=== PATIENT | female | born 1945 | race Caucasian/White ===

== ENCOUNTER 2017-03-30 13:09 | Observation (INO) | payer OTHER ==
[~2017-03-30] VITALS: Ht 167.6 cm; Wt 70.3 kg
--- NOTE | 2017-03-30 13:13 | NUR ---
Patient BIBA to ER bed 4 at this time.
--- NOTE | 2017-03-30 13:15 | NUR ---
71/F SAUL FROM [facility] [place] FOR 6/10 HEADACHE AND CHEST PAIN. PT AWAKE AND ALERT. PER EMS COMPLETE HER DIALYSIS. 22 IV NOTED TO LEFT HAND, IN PLACE BY EMS. NO MEDS GIVEN BY EMS. ER MD MADE AWARE. PT CHANGED IN GOWN AND PLACED ON MONITOR. SAFETY AND COMFORT MEASURES PROVIDED.
[2017-03-30 13:19] VITALS: BP 165/80
--- NOTE | 2017-03-30 13:20 | NUR ---
Patient being evaluated by physician at bedside.
[2017-03-30] MEDS ORDERED: ASPIRIN 81 MG TAB.CHEW PO ONE (13:25)
[2017-03-30] MEDS ORDERED: VENL-151 PO (13:34)
[2017-03-30] MEDS ORDERED: CINA30TA PO (13:34)
[2017-03-30] MEDS ORDERED: NIFE90TE4 PO (13:34)
[2017-03-30] MEDS ORDERED: PANT40EC PO (13:34)
[2017-03-30] MEDS ORDERED: HYDR1TAB70 PO (13:34)
[2017-03-30] MEDS ORDERED: CARV6.25 PO (13:34)
[2017-03-30] MEDS ORDERED: TRAZ-286 PO (13:34)
[2017-03-30] MEDS ORDERED: ASPI81CT89 PO (13:34)
[2017-03-30] MEDS ORDERED: NIFE90TE3 PO (13:34)
[2017-03-30] MEDS ORDERED: MIC5 PO (13:34)
[2017-03-30] MEDS ORDERED: VENL150C1 PO (13:34)
[2017-03-30 13:39] LABS: BASOPHILS # (AUTO) 0.1 K/uL (0.00-0.22); BASOPHILS % (AUTO) 0.7 % (0.0-2.0); EOSINOPHILS # (AUTO) 0.2 K/uL (0-0.4); EOSINOPHILS % (AUTO) 1.8 % (0.0-4.0); HEMATOCRIT 29.6 % (36-48); HEMOGLOBIN 9.3 g/dL (12.0-16.0); LYMPHOCYTES # (AUTO) 1.5 K/uL (2.5-16.5); LYMPHOCYTES % (AUTO) 16.3 % (20.5-51.1); MEAN CORPUSCULAR HEMOGLOBIN 30 pg (27-31); MEAN CORPUSCULAR HGB CONC 32 g/dL (33-37); MEAN CORPUSCULAR VOLUME 94 fL (80-94); MONOCYTES # (AUTO) 0.5 K/uL (0.8-1.0); MONOCYTES % (AUTO) 5.3 % (1.7-9.3); NEUTROPHILS # (AUTO) 6.9 K/uL (1.8-7.7); NEUTROPHILS % (AUTO) 75.9 % (42.2-75.2); PLATELET COUNT (AUTO) 121 K/uL (140-450); RED BLOOD CELL COUNT(AUTO) 3.14 MIL/uL (4.20-5.40); RED CELL DISTRIBUTION WIDTH 19.2 % (11.6-13.7); WHITE BLOOD COUNT (AUTO) 9.3 K/uL (4.8-10.8)
[2017-03-30 14:07] LABS: INR 1.2 (0.8-1.2); PARTIAL THROMBOPLASTIN TIME 34.7 secs (22-35.6); PROTHROMBIN TIME 11.4 secs (10.8-13.4)
--- NOTE | 2017-03-30 14:25 | NUR ---
Note ana in EDM - 03/30/17 at 1451 by THEA 20G IV TO RAC. BLOOD DRAWN AND SENT TO LAB. IV PATENT AND INTACT. PT VALENCIA BRASHER.
--- NOTE | 2017-03-30 14:30 | NUR ---
PT SLEEPING AT THIS TIME. VSS. AWAITING POC.
[2017-03-30 14:39] LABS: CALCIUM 9.4 mg/dL (8.5-10.1); CARBON DIOXIDE 31.6 mmol/L (21-32); CHLORIDE 102 mmol/L (98-107); CREATININE 2.8 mg/dL (0.6-1.3); GLUCOSE 155 mg/dL (74-106); POTASSIUM 3.6 mmol/L (3.5-5.1); SODIUM SERUM 143 mmol/L (136-145); UREA NITROGEN, BLOOD 11 mg/dL (7-18)
[2017-03-30 14:45] LABS: ALANINE AMINOTRANSFERASE 24 U/L (12-78); ALBUMIN 3.4 g/dL (3.4-5.0); ALKALINE PHOSPHATASE 142 U/L (46-116); ASPARTATE AMINOTRANSFERASE 22 U/L (15-37); TOTAL BILIRUBIN 0.8 mg/dL (0.0-1.0); TOTAL PROTEIN, SERUM 7.7 g/dL (6.4-8.2)
[2017-03-30] MEDS ORDERED: NITROGLYCERIN 2% 1 GM PKT TP ONE (14:45)
--- NOTE | 2017-03-30 14:48 | NUR ---
Jay perez in [facility] - 03/30/17 at 1451 by THEA PT SIGNED CONSENT FOR CT OF ABDOMOPELVIS WITH CONTRAST.
[2017-03-30] MEDS ORDERED: ACETAMINOPHEN 325 MG TAB PO PRN (15:30)
[2017-03-30] MEDS ORDERED: HYDROcodone/APAP 5/325 MG 1 TAB TAB PO PRN (15:30)
[2017-03-30] MEDS ORDERED: LORazepam 2 MG/ML VIAL IVP PRN (15:30)
[2017-03-30] MEDS ORDERED: MORPHINE SULFATE 2 MG/ML SYR IVP PRN (15:30)
[2017-03-30] MEDS ORDERED: ONDANSETRON 4 MG/2 ML VIAL IVP PRN (15:30)
--- NOTE | 2017-03-30 15:50 | NUR ---
Patient will be admitted to care of DR. ZEE. Admited to TELE. Will go to room 119-B. Belongings list completed. Report to JOHNNIE SANCHZE.
[2017-03-30 16:14] VITALS: BP 155/77
[2017-03-30] MEDS ORDERED: ALBUTEROL 0.083% 2.5 MG/3 ML NEBU IH SCH (19:00)
[2017-03-30] MEDS ORDERED: IPRATROPIUM 0.02% 0.5 MG/2.5 ML NEBU IH SCH (19:00)
--- NOTE | 2017-03-30 19:31 | NUR ---
PT ON UNIT. NO S/S OF ACUTE DISTRESS. PT DENIES PAIN AT THIS TIME. IV SITE PATENT AND INTACT. DIALYSIS PORT NOTED TO RIGHT UPPER CHEST. ON O2 2L NC. PT ORIENTED TO ROOM. TELE BOX IN PLACE. CALL LIGHT WITHIN REACH. SAFETY MEASURES ENSURED. WILL CONTINUE TO MONITOR.
--- NOTE | 2017-03-30 19:33 | NUR ---
ENDORSED PLAN OF CARE. PT REMAINS IN STABLE CONDITION.
--- NOTE | 2017-03-30 19:35 | NUR ---
RECEIVED REPORT FROM DAY SHIFT NURSE. PT AOX4, ABLE TO VERBALIZE NEEDS. PT RESTING COMFORTABLY IN BED. PT ON 2L O2 NC. PT DENIES CP, SOB OR S/S OF ACUTE DISTRESS. PT C/O PAIN. SEE PAIN ASSESSMENT. WILL MEDICATE WITH APAP PER PT REQUEST. JUNIOR FINANCIAL ANALYST IN PLACE. RIGHT DUC CATH NOTED. RIGHT ARM FISTULA NOTED, RIGHT ARM RESTRICTIONS OBSERVED. IV ACCESS ASYMPTOMATIC, PATENT AND INTACT, SALINE LOCKED. DISCUSSED AND REVIEWED PLAN OF CARE WITH PT, PT VERBALIZES UNDERSTANDING. SAFETY MEASURES ENSURED. CALL LIGHT WITHIN REACH. WILL CONTINUE TO MONITOR.
[2017-03-30 20:00] VITALS: BP 155/77
[2017-03-30] MEDS ORDERED: AZITHROMYCIN 250 MG in DEXTROSE 5% 250 ML IV SCH (21:00)
[2017-03-30] MEDS ORDERED: HYDROCHLOROTHIAZIDE PO SCH (21:00)
[2017-03-30] MEDS ORDERED: VALSARTAN PO SCH (21:00)
[2017-03-30] MEDS ORDERED: [UNRECOGNIZED DRUG - OTHER] PO SCH (21:00)
[2017-03-30] MEDS: CARVEDILOL 6.25 MG TAB PO SCH (21:30)
[2017-03-30] MEDS ORDERED: AZITHROMYCIN 500 MG INJ VIAL IV ONE (21:30)
--- NOTE | 2017-03-30 21:40 | NUR ---
PT SON AT BEDSIDE. ADMINISTERED MEDICATIONS WITH EDUCATION, PT VERBALIZES UNDERSTANDING, PT TOLERATED WELL. IV ZITHROMAX INFUSING WELL. ALL NEEDS MET. SAFETY MEASURES ENSURED. CALL LIGHT WITHIN REACH. WILL CONTINUE TO MONITOR.
[2017-03-30 21:55] LABS: CREATINE KINASE MB 0.7 ng/mL (0-3.6)
[2017-03-31] VITALS: BP 156/80
--- NOTE | 2017-03-31 01:00 | NUR ---
PT SLEEPING IN BED COMFORTABLY. CONDITION STABLE. ALL NEEDS MET. SAFETY MEASURES ENSURED. CALL LIGHT WITHIN REACH. WILL CONTINUE TO MONITOR.
[2017-03-31 04:00] VITALS: BP 162/80
--- NOTE | 2017-03-31 04:00 | NUR ---
PT SLEEPING IN BED COMFORTABLY. CONDITION STABLE. ALL NEEDS MET. SAFETY MEASURES ENSURED. CALL LIGHT WITHIN REACH. WILL CONTINUE TO MONITOR.
[2017-03-31] MEDS ORDERED: PANTOPRAZOLE 40 MG TABEC PO SCH (06:30)
[2017-03-31 06:36] LABS: BASOPHILS # (AUTO) 0.1 K/uL (0.00-0.22); EOSINOPHILS # (AUTO) 0.2 K/uL (0-0.4); EOSINOPHILS % (AUTO) 2.3 % (0.0-4.0); HEMATOCRIT 26.6 % (36-48); HEMOGLOBIN 8.6 g/dL (12.0-16.0); LYMPHOCYTES # (AUTO) 1.8 K/uL (2.5-16.5); LYMPHOCYTES % (AUTO) 22.2 % (20.5-51.1); MEAN CORPUSCULAR HEMOGLOBIN 30 pg (27-31); MEAN CORPUSCULAR HGB CONC 32 g/dL (33-37); MEAN CORPUSCULAR VOLUME 94 fL (80-94); MONOCYTES # (AUTO) 0.6 K/uL (0.8-1.0); MONOCYTES % (AUTO) 7.7 % (1.7-9.3); NEUTROPHILS # (AUTO) 5.3 K/uL (1.8-7.7); NEUTROPHILS % (AUTO) 66.8 % (42.2-75.2); PLATELET COUNT (AUTO) 115 K/uL (140-450); RED BLOOD CELL COUNT(AUTO) 2.82 MIL/uL (4.20-5.40); RED CELL DISTRIBUTION WIDTH 18.8 % (11.6-13.7)
[2017-03-31 06:58] LABS: ALANINE AMINOTRANSFERASE 20 U/L (12-78); ALBUMIN 2.9 g/dL (3.4-5.0); ALKALINE PHOSPHATASE 129 U/L (46-116); ASPARTATE AMINOTRANSFERASE 15 U/L (15-37); CALCIUM 8.7 mg/dL (8.5-10.1); CARBON DIOXIDE 31.4 mmol/L (21-32); CHLORIDE 101 mmol/L (98-107); GLUCOSE 216 mg/dL (74-106); MAGNESIUM 1.8 mg/dL (1.8-2.4); POTASSIUM 4.4 mmol/L (3.5-5.1); SODIUM SERUM 140 mmol/L (136-145); TOTAL BILIRUBIN 0.4 mg/dL (0.0-1.0); TOTAL PROTEIN, SERUM 6.9 g/dL (6.4-8.2); UREA NITROGEN, BLOOD 24 mg/dL (7-18)
[2017-03-31 07:15] LABS: CREATININE 4.5 mg/dL (0.6-1.3)
[2017-03-31] MEDS ORDERED: glyBURIDE 2.5 MG TAB PO SCH ×2 (07:30→08:00)
--- NOTE | 2017-03-31 07:30 | NUR ---
ENDORSED PLAN OF CARE TO DAY SHIFT NURSE. CONDITION STABLE.
--- NOTE | 2017-03-31 07:31 | NUR ---
RECEIVED PT AWAKE BUT EASILY AROUSABLE, AAOX4 ESTONIAN SPEAKING, WITH O2 AT 2LPM VIA NC, WITH IV ACCESS AT LEFT HAND 22G ON SALINE LOCK PATENT AND INTACT. WITH PERMA CATH AT RIGHT UPPER CHEST, WITH AV SHUNT AT RIGHT UPPER ARM PATENT WITH BRUIT AND THRILLS. PT COMPLAINED OF HEADACHE, WILL ADMINISTER PAIN MED. SKIN IS INTACT. DISCUSSED PLAN OF CARE, PT VERBALIZED UNDERSTANDING. CALL LIGHT WITHIN REACH, WILL CONTINUE TO MONITOR.
[2017-03-31 08:00] VITALS: BP 153/79
[2017-03-31] MEDS: CARVEDILOL 6.25 MG TAB PO SCH (08:38)
--- NOTE | 2017-03-31 08:52 | NUR ---
DUE MEDS GIVEN, PT TOLERATED WELL. CALL LIGHT WITHIN REACH, WILL CONTINUE TO MONITOR
[2017-03-31] MEDS ORDERED: ASPIRIN 81 MG TAB.CHEW PO SCH (09:00)
[2017-03-31] MEDS ORDERED: VALSARTAN 80 MG TAB PO SCH (09:00)
[2017-03-31] MEDS ORDERED: HYDROCHLOROTHIAZIDE 25 MG TAB PO SCH ×2 (09:00→09:40)
[2017-03-31] MEDS ORDERED: VENLAFAXINE XR 75 MG CAPER PO SCH (09:00)
[2017-03-31] MEDS ORDERED: NIFEdipine 90 MG TABER PO SCH (09:00)
[2017-03-31] MEDS ORDERED: traZODone 50 MG TAB PO SCH (09:00)
[2017-03-31] MEDS ORDERED: CINACALCET 30 MG TAB PO SCH (09:00)
--- NOTE | 2017-03-31 10:02 | NUR ---
PT AWAKE AND WATCHING TV, NO COMPLAINTS AT THIS TIME. WILL CONTINUE TO MONITOR.
--- NOTE | 2017-03-31 10:02 | NUR ---
PATIENT HAS BEEN SCREENED AND CATEGORIZED MODERATE NUTRITION RISK. PATIENT WILL BE SEEN WITHIN 3-5 DAYS OF ADMISSION. 04/02/17-04/04/[address]
[2017-03-31 12:00] VITALS: BP 159/82
--- NOTE | 2017-03-31 12:58 | NUR ---
PT ASLEEP, NO SIGNS OF DISTRESS NOTED. WILL CONTINUE TO MONITOR.
--- NOTE | 2017-03-31 14:50 | NUR ---
DISCHARGE PRESCRIPTIONS AND INSTRUCTIONS GIVEN, TRANSLATED BY SON, PT VERBALIZED UNDERSTANDING. ID WRISTBAND, TELE MONITOR AND IV ACCESS REMOVED, CATHETER TIP INTACT. PT LEFT UNIT VIA WHEELCHAIR ACCOMPANIED BY SON IN STABLE CONDITION
[2017-04-01] MEDS ORDERED: HYDROCHLOROTHIAZIDE 25 MG TAB PO SCH (09:00)
== END 2017-03-31 14:50 | disposition home or self-care (01) ==
LOC: MED 13:09 → MTU 15:35
PROVIDERS: ADMIT Hospitalist; ATTEND Hospitalist
DX: R07.89 Other chest pain (principal); N18.6 End stage renal disease; I12.0 Hypertensive chronic kidney disease with stage 5 chronic kidney disease or end stage renal disease; E11.22 Type 2 diabetes mellitus with diabetic chronic kidney disease; D63.1 Anemia in chronic kidney disease; F33.9 Major depressive disorder, recurrent, unspecified; J90 Pleural effusion, not elsewhere classified; N25.81 Secondary hyperparathyroidism of renal origin; Z99.2 Dependence on renal dialysis
CPT/HCPCS: 36415; 71010; 71020; 80053; 82550; 82553; 83735; 83880; 84484; 85025; 85610; 85730; 87081; 93005; 94640; 94760; 96365; 96372; 96375; 99285; G0378; J0456; J1644; J2270; J7030; J7060; J7613; J7644; Q0092

== ENCOUNTER 2017-04-19 13:23 | Emergency (ER) | payer OTHER ==
[~2017-04-19] VITALS: Ht 152.4 cm; Wt 68.0 kg
[~2017-04-19 13:23] MED LIST: ADALAT CC90 MG PO; ASPIRIN81 M1 PO; COREG6.25 MG PO; DESYREL50 MG PO; DIOVAN HCT 12.51 TAB PO; EFFEXOR-XR150 MG PO; MICRONASE5 MG PO; PROCARDIA XL90 MG PO; PROTONIX40 MG PO; SENSIPAR30 MG PO; VENLAFAXINE HYD75 M2 PO
[2017-04-19 14:12] VITALS: BP 94/42
[2017-04-19] MEDS ORDERED: DICLOFENAC SOD100 GM TP (14:30)
--- NOTE | 2017-04-19 14:31 | NUR ---
PATIENT AND PT'S GRANDSON POOR HISTORIAN.
--- NOTE | 2017-04-19 17:38 | NUR ---
PATIENT CALLED FORM LOBBY AT THIS TIME NO ANSWER PATIENT IS LWBS.
== END 2017-04-19 17:38 | disposition left against medical advice (07) ==
LOC: MED 13:23
DX: R79.89 Other specified abnormal findings of blood chemistry (principal); Z53.21 Procedure and treatment not carried out due to patient leaving prior to being seen by health care provider